=== PATIENT | female | born 1975 | race African-American/Black ===

== ENCOUNTER 2021-02-24 11:22 | Emergency (ER) | payer OTHER, MEDICAID, SELFPAY ==
--- NOTE | 2021-02-24 11:49 | W.ED.GENAD ---
Discharge Plan Disposition Patient Disposition: HOME Condition: Improving Discharge Details Clinical Impression: Behavior concern in adult Primary Care Provider: None,None ED Provider: Pedro Del Real Home Meds and New Rx's Prescriptions: No Action No Known Home Meds RF: 0 Discharge Instructions Additional Instructions: You have agreed to an outpatient plan of safety with our crisis screener's. Return to the emergency department at any time for reevaluation. Resume normal routine and activities. Medical Decision Making 45-year-old female brought by police for mental health examination. She was reported to have aggressive behavior at the [facility] is living in. 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 Her thoughts are tangential and bizarre at times. Medical screening examination including laboratory analysis performed. Patient does have mild hyperglycemia, no significant anion gap, and no ketones in the urine. Toxicology negative. I do not feel the patient is a danger to herself or others. She does seem to have some fixed false beliefs, but with more questioning they appear to be centered on the black lives matter movement. She is seen by mental health. She is not a danger to herself or others. A plan for outpatient safety is arranged. Lab Data Lab results reviewed: Yes I reviewed the patient's lab results. Labs: Laboratory Results - last 24 hr 02/24/21 02/24/21 02/24/21 11:32 12:10 12:10 WBC 10.46 RBC 5.21 Hgb 15.8 H Hct 47.2 H MCV 90.6 MCH 30.3 MCHC 33.5 RDW 12.8 Plt Count 276 MPV 9.3 Immature Gran % 0.5 Neutrophils % 71.7 Lymphocytes % 21.6 Monocytes % 4.6 Eosinophils % 1.2 Basophils % 0.4 Nucleated RBC % 0 Absolute Neutrophils 7.50 H Absolute Lymphocytes 2.26 Absolute Monocytes 0.48 Absolute Eosinophils 0.13 Absolute Basophils 0.04 Sodium 132 L Potassium 4.1 Chloride 100 Carbon Dioxide 23.4 Anion Gap 8.6 BUN 8 Creatinine 0.8 Estimated GFR/1.73 m2 >= 60.00 Glucose 326 H Calcium 9.1 Total Bilirubin 0.4 AST 11 L ALT 22 Alkaline Phosphatase 84 Total Protein 8.4 H Albumin 3.6 TSH 1.16 Urine Color Urine Clarity Urine pH Ur Specific [place] Urine Protein Urine Ketones Urine Blood Urine Nitrite Urine Bilirubin Urine Urobilinogen Ur Leukocyte Esterase Urine RBC Urine WBC Ur Epithelial Cells Urine Crystals Urine Bacteria Urine Casts Urine Mucus Ur Culture Indicated? Urine Glucose Salicylates Cancelled Urine Opiates Screen Urine Methadone Screen Acetaminophen Cancelled Ur Barbiturates Screen Ur Tricyclics Screen Ur Amphetamines Screen U Benzodiazepines Scrn Urine Cocaine Screen Ur THC Screen Ethyl Alcohol < 3.0 02/24/21 02/24/21 12:12 12:12 WBC RBC Hgb Hct MCV MCH MCHC RDW Plt Count MPV Immature Gran % Neutrophils % Lymphocytes % Monocytes % Eosinophils % Basophils % Nucleated RBC % Absolute Neutrophils Absolute Lymphocytes Absolute Monocytes Absolute Eosinophils Absolute Basophils Sodium Potassium Chloride Carbon Dioxide Anion Gap BUN Creatinine Estimated GFR/1.73 m2 Glucose Calcium Total Bilirubin AST ALT Alkaline Phosphatase Total Protein Albumin TSH Urine Color Yellow Urine Clarity Clear Urine pH 5.0 Ur Specific [place] 1.025 Urine Protein 30 H Urine Ketones Negative Urine Blood Trace-intact H Urine Nitrite Negative Urine Bilirubin Negative Urine Urobilinogen 0.2 Ur Leukocyte Esterase Negative Urine RBC 0-2 Urine WBC 0-2 Ur Epithelial Cells Few Urine Crystals Few Uric Acid Urine Bacteria Rare Urine Casts Comment Urine Mucus Trace Ur Culture Indicated? No Urine Glucose 500 H Salicylates Urine Opiates Screen Negative Urine Methadone Screen Negative Acetaminophen Ur Barbiturates Screen Negative Ur Tricyclics Screen Negative Ur Amphetamines Screen Negative U Benzodiazepines Scrn Negative Urine Cocaine Screen Negative Ur THC Screen Negative Ethyl Alcohol HPI General Mode of arrival: ambulatory. Date/Time Provider Initiated Documentation: 02/24/21 11:25. Limitations to Documentation: no limitations. Information obtained by: patient and police. History of Present Illness 45 year old F presents to the emergency department with the chief complaint of Brought by police after acting aggressively at ch[facility] home., described as moderate, Patient started experiencing this minute(s) No relieving factors improve symptom(s), No exacerbating factors reported . Patient did receive the following treatments prior to arrival, other (Denies thoughts of harming herself or others) Related Data Home Medications Medication Instructions Recorded Confirmed Unknown [No Known Home Meds] 02/24/21 02/24/21 Allergies Allergy/AdvReac Type Severity Reaction Status Date / Time carbamazepine [From Tegretol] Allergy Unverified 08/04/21 11:32 tramadol Allergy Unverified 02/24/21 11:32 General Stated Complaint: PsychEval BEBO: 2 Review of Systems Narrative: Denies recent illness. States she is recently moved from a [facility] in [facility]. States prior to that she was in [facility]. Denies psychiatric history to me upon my questioning. [facility] Social History Smoking risk assessment performed?: No Exam Narrative Exam Narrative: GEN: awake, alert, oriented to person place and date. Pleasant, well groomed, interactive. HEAD: Normocephalic, atraumatic ENT: Mucous membranes moist, oropharynx unremarkable, External ear exam unremarkable EYES: PERRL, EOMI NECK: Full ROM, no CARLY, no menigismus CHEST/RESP: Nontender, clear to auscultation bilateral, no wheeze/rhonchi/rales CARDIOVASCULAR: RRR, no murmur, rub ana. 2+ Rad pulse bilateral ABDOMEN: Soft, nontender, no mass. +Bowel sounds EXT: Full ROM, no edema, no rash Neuro: Grossly normal neurologic exam, conversant, interactive. Psych: Speech fluent, thoughts tangential at times, affect bizarre at times
[2021-02-24 12:22] LABS: Abs Immature Grans 0.05 10^3/uL (0.0-0.06); Absolute Basophil Count 0.04 10^3/uL (0.0-0.2); Absolute Eosinophil Count 0.13 10^3/uL (0.0-0.7); Absolute Lymphocyte Count 2.26 10^3/uL (1.2-3.4); Absolute Monocyte Count 0.48 10^3/uL (0.1-0.8); Basophils % 0.4; Eosinophils % 1.2; HCT 47.2 % (36.0-46.0); HGB 15.8 g/dL (11.2-15.7); Immature Grans % 0.5; Lymphocytes % 21.6; MCH 30.3 pg (27.0-33.0); MCHC 33.5 % (32.0-36.0); MCV 90.6 fL (80-95); MPV 9.3 fL (8.0-11.0); Monocytes % 4.6; Neutrophils % 71.7; Nucleated RBC 0 %; Platelet Count 276 10^3/uL (130-400); RBC 5.21 10^6/uL (3.93-5.22); RDW 12.8 % (11.7-14.6); WBC 10.46 10^3/uL (4.4-10.8)
[2021-02-24 12:43] LABS: Bilirubin Negative (Negative); Blood Trace-intact (Negative); Clarity Clear (Clear); Glucose 500 mg/dL (Negative); Ketones Negative (Negative); Leukocyte Esterase Negative (Negative); Nitrite Negative (Negative); Specific Gravity 1.025 (1.005-1.025); Urobilinogen 0.2 EU/dL (Up TO 0.2)
[2021-02-24 12:49] LABS: ALT 22 U/L (14-59); AST 11 U/L (15-37); Albumin 3.6 g/dL (3.4-5.0); Alkaline Phosphatase 84 U/L (46-116); Anion Gap 8.6 mmol/L (3-11); BUN 8 mg/dL (7-18); Bilirubin, Total 0.4 mg/dL (0.2-1.0); CO2 23.4 mmol/L (21.0-32.0); CREATININE 0.8 mg/dL (0.55-1.02); Calcium 9.1 mg/dL (8.5-10.1); Chloride 100 mmol/L (98-107); Glucose 326 mg/dL (74-106); Potassium 4.1 mmol/L (3.5-5.1); Sodium 132 mmol/L (136-145); TSH (W/Ref FT4) 1.16 uIU/mL (0.36-3.74); Total Protein 8.4 g/dL (6.4-8.2)
[2021-02-24 12:49] LABS: *AMPHETAMINES SCREEN URINE Negative (Negative); *BARBITURATES SCREEN URINE Negative (Negative); *BENZODIAZEPINES SCREEN URINE Negative (Negative); Cannabinoids THC Negative (Negative); Cocaine Screen,Urine Negative (Negative); METHADONE URINE SCREEN Negative (Negative); OPIATES URINE SCREEN Negative (Negative)
[2021-02-24 12:51] LABS: ETHANOL BLOOD < 3.0 mg/dL (<3)
[2021-02-24 12:51] LABS: Bacteria Rare HPF (Negative); Crystals Few Uric Acid HPF (Negative); Epithelial Cells Few HPF (Negative); Mucus Trace (Negative); RBC 0-2 HPF (0-2); WBC 0-2 HPF (0-5)
[2021-02-24 12:52] LABS: C & S Indicated? No; Tricyclic Antidepressants Negative (Negative)
--- NOTE | 2021-02-24 13:55 | PDOC.MHCN_ITS ---
Date of service: 02/24/21 Time of Service: 13:55 Mental Health Crisis Note Presenting Issue How did you arrive at the ED and why did you come: Pt arrived via [facility] after they and [facility] were called to [facility] due to a woman having a mental health crisis who was also making threats toward staff. Precipitating Factors Pt denied SI and HI. She presented as having possible delusions in the community when assessed however, upon meeting with her at [facility] she was not showing any delusions. Disposition BEHAVIOR: When assessed in the field the Pt presented as very disorganized and tangential. Once at [facility] she was calm, insightful and engaged. EYE CONTACT: Pt made good eye contact. MOOD: Pt's mood appeared pleasant and calm. AFFECT: Affect is smiling APPETITE: Pt requested food while here. SLEEP(trouble falling/staying asleep: Pt did not discuss her sleep. Plan Pt will safety plan today to go back to the community. She did opening paperwork to start services at [facility]. She will do check in calls to [facility] for the next two days. If she does not have services being started at [facility] as she reports than [facility] will do an inhouse referral. Signature Clinician's Name/Title: Ursula Daniel MS, [facility] Emergency Services Clinician, [facility]
--- NOTE | 2021-02-24 13:55 | PDOC.MHCN ---
Date of service: 02/24/21 Time of Service: 13:55 Mental Health Crisis Note Presenting Issue How did you arrive at the ED and why did you come: Pt arrived via [facility] after they and [facility] were called to [facility] due to a woman having a mental health crisis who was also making threats toward staff. Precipitating Factors Pt denied SI and HI. She presented as having possible delusions in the community when assessed however, upon meeting with her at [facility] she was not showing any delusions. Disposition BEHAVIOR: When assessed in the field the Pt presented as very disorganized and tangential. Once at [facility] she was calm, insightful and engaged. EYE CONTACT: Pt made good eye contact. MOOD: Pt's mood appeared pleasant and calm. AFFECT: Affect is smiling APPETITE: Pt requested food while here. SLEEP(trouble falling/staying asleep: Pt did not discuss her sleep. Plan Pt will safety plan today to go back to the community. She did opening paperwork to start services at [facility]. She will do check in calls to [facility] for the next two days. If she does not have services being started at [facility] as she reports than [facility] will do an inhouse referral. Signature Clinician's Name/Title: Ursula Daniel MS, [facility] Emergency Services Clinician, [facility]
== END 2021-02-24 14:32 | disposition home or self-care (01) ==
PROVIDERS: Emergency Provider Emergency Medicine
DX: R46.89 Other symptoms and signs involving appearance and behavior (principal); R73.9 Hyperglycemia, unspecified
CPT/HCPCS: 36415; 80053; 80307; 87635; 99285; 80320; 80329; 81003; 81015; 84443; 85025; 99283